=== PATIENT | female | born 2000 | race Caucasian/White ===

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

== ENCOUNTER 2019-11-05 14:42 | Outpatient (REF) | payer MEDICAID, SELFPAY ==
[2019-11-09 12:48] LABS: Chlamydia Result Negative (Negative); GC Result Negative (Negative)
== END 2019-11-05 15:02 ==
LOC: NCHCN 14:42
PROVIDERS: Visit Provider Nurse Practitioner Family
DX: N76.0 Acute vaginitis (principal); Z11.3 Encounter for screening for infections with a predominantly sexual mode of transmission
CPT/HCPCS: 87491; 87591

== ENCOUNTER 2020-07-11 22:27 | Outpatient (REF) | payer MEDICAID, SELFPAY ==
[2020-07-15 10:08] LABS: COVID-19 RT-PCR Result NEGATIVE (Negative)
== END 2020-07-11 22:47 ==
LOC: NCHCN 22:27
PROVIDERS: PCP Nurse Practitioner Family; Visit Provider Nurse Practitioner Family
DX: Z20.828 Contact with and (suspected) exposure to other viral communicable diseases (principal)
CPT/HCPCS: U0003

== ENCOUNTER 2020-08-19 13:40 | Outpatient (REF) | payer MEDICAID, SELFPAY ==
--- NOTE | 2020-08-19 12:15 | PAPFT_PTH ---
PATIENT: Alisia Wilkinson LOC: [facility]#:[id number] AGE/SX: 20/ ROOM: RE08/19/[address]: Aminata Betancourt : 2000 BED: DIS: 08/19/2020 SPEC #: [id number] RECD: 08/19/20 16:48 STATUS: ALEXANDER REQ #: [id number] MINO: 08/19/20 12:[address]: Aminata Betancourt DEPT: [facility] Cytology RECD BY: Milagro Huber Tissues: 1 - CX/ENDOCX FOR PAP SMEARS Procedures: PAP THIN PREP/[facility] Screening Comments: [id number]
== END 2020-08-19 14:00 ==
LOC: NCHCN 13:40
PROVIDERS: PCP Nurse Practitioner Family; Visit Provider Nurse Practitioner Family
DX: Z12.4 Encounter for screening for malignant neoplasm of cervix (principal)
CPT/HCPCS: 88142

== ENCOUNTER 2021-05-14 10:56 | Emergency (ER) | payer MEDICAID, SELFPAY ==
[2021-05-14 11:04] VITALS: BP 116/68; PULSE 99; RESP 18; TEMP 36.5; O2SAT 98
--- NOTE | 2021-05-14 11:31 | W.ED.GENAD ---
Discharge Plan Disposition Patient Disposition: HOME Condition: Stable Discharge Details Clinical Impression: URI (upper respiratory infection), Acute conjunctivitis, left eye Primary Care Provider: Aminata Betancourt ED Provider: Luis Zarate Home Meds and New Rx's Prescriptions: Continued multivitamin Capsule 1 cap PO DAILY RF: 0 Digestive Probiotic 1.5 billion cell capsule 4 mg PO DAILY RF: 0 olive leaf extract 250 mg capsule PO RF: 0 naproxen sodium [Aleve] 220 MG tablet 220 mg PO PRN PRNRF: 0 ibuprofen 200 MG tablet 400 mg PO PRN PRNRF: 0 Discharge Instructions Instructions: Erythromycin (Into the eye), Upper Respiratory Infection (ED), Conjunctivitis (ED) Additional Instructions: Please drink plenty fluids and allow for plenty of rest. Use erythromycin ointment as follows: Apply 0.5 inch to left eye 4 times a day for the next 1 week Please contact your primary care physician to arrange follow-up. Return to the ER immediately for any worsening or new concerning symptoms. Referrals: Aminata Betancourt [Primary Care Provider] - Medical Decision Making 20-year-old female here with cough, congestion, sore throat, left conjunctivitis. Patient saturating well in no respiratory distress with clear lungs bilaterally. No signs of focal bacterial infection on exam. Supportive care recommended with follow-up with her PCP. She was encouraged to return immediately for any worsening or new concerning symptoms. HPI General Mode of arrival: ambulatory. Date/Time Provider Initiated Documentation: 05/14/21 11:11. Limitations to Documentation: no limitations. Information obtained by: patient. HPI Narrative: 20-year-old female here with chief complaint of sore throat. Patient notes sore throat for the past few days. She has had associated inflammation of her left eye with red discoloration as well as cough over the past 5 days. Symptoms are moderate but persistent. She had PCR Covid test done 2 days ago that is negative. No associated fever no shortness of breath. No chest pain. Multiple students at school sick with similar. Related Data Home Medications Medication Instructions Recorded Confirmed ibuprofen 400 mg PO PRN PRN 07/28/16 05/14/21 naproxen sodium [Aleve] 220 mg PO PRN PRN 07/28/16 05/14/21 Bifidobacterium infantis 1.5 4 mg PO DAILY 05/18/19 05/14/21 billion cell capsule multivitamin 1 cap PO DAILY 05/18/19 05/14/21 olive leaf extract 250 mg capsule mg PO 05/18/19 05/18/19 Allergies Allergy/AdvReac Type Severity Reaction Status Date / Time No Known Allergies Allergy Verified 05/14/21 11:09 General Stated Complaint: RespSymp ADRIANA: 4 Review of Systems All systems reviewed & are unremarkable except as noted in HPI and below Constitutional Constitutional: Denies fever(s) Respiratory Respiratory: Reports as per HPI [facility] Medical History Vaginismus Social History Smoking/Tobacco Use Status: Never Smoking risk assessment performed?: Yes Alcohol Intake: current Alcohol Intake frequency: a few times a week Alcohol type: beer Drug use: Never Substance use type: does not use Sexually active: Yes Do you think of yourself as: straight/heterosexual Current gender identity: female Do you feel safe at home: Yes Do you feel safe in your relationship?: Yes Female Reproductive History Menstrual control method: progesterone injection History History 0 Para Hx # Term Pregnancies Multiple births Hx # Pregnancies Ectopic pregnancies AB induced Hx Number of Living Children AB spontaneous Exam Const General: cooperative and no acute distress HENMT Mouth: moist mucous membranes Throat: uvula midline, posterior oropharynx abnormal erythema; no edema and no exudates and other Other: No stridor, no Eyes Conjunctivae: conjunctival abnormality left conjunctival injection; without discharge Sclera: normal sclerae Neck Neck: trachea midline and supple Lymphatic: lymphadenopathy (Mild bilateral anterior) Resp Auscultation: clear to auscultation bilaterally, no rales, no rhonchi and no wheezes Cardio Rate: regular rate and not tachycardic Rhythm: regular rhythm GI Palpation: soft, not firm, no guarding, no masses, not rigid and nontender Skin General skin exam: no rashes or lesions noted Neuro General: patient alert, patient awake, patient oriented x3 and tone normal Extrem General: no edema Course Vital Signs Vital signs: Vital Signs Temperature 36.5 C 05/14/21 11:04 Pulse 99 H 05/14/21 11:04 Respiratory Rate 18 05/14/21 11:04 Blood Pressure 116/68 05/14/21 11:04 Pulse Oximetry 98 05/14/21 11:04 Temperature 36.5 C 05/14/21 11:04 Temperature Source Temporal Artery Scan 05/14/21 11:04 Pulse 99 H 05/14/21 11:04 Respiratory Rate 18 05/14/21 11:04 Respiratory Effort Non-Labored 05/14/21 11:11 Respiratory Depth Normal 05/14/21 11:11 Blood Pressure 116/68 05/14/21 11:04 Blood Pressure Position Sitting 05/14/21 11:04 Pulse Oximetry 98 05/14/21 11:04 Oxygen Delivery Method Room Air 05/14/21 11:04 Oxygen Flow Rate 0 05/14/21 11:04 Pain Level 5 05/14/21 11:04 Lab/Test Results Lab/Test Results: POC- Test(urine) Negative POC Strep Test-AMISHA(Rapid) Start: 05/14/21 11:28 Freq: Status: Active Protocol: Document 05/14/21 11:28 TB (Rec: 05/14/21 11:28 TB [id number]) Strep test-AMISHA(Rapid)-POC POC-Strep test-AMISHA (Rapid) Negative POC-Strep test-AMISHA (Rapid) Negative PAWSS Have you Been Recently Intoxicated or Drunk Within the Last 30 days?: Yes Have you Ever Experienced Previous Episodes of Alcohol Withdrawal?: No Have you ever Experienced Withdrawal Seizures?: No Have you ever Experienced Delirium Tremens(DT)s?: No Have you ever undergone Alcohol Rehabilitation Treatment (i.e, inpt ot outpatient treatment programs)?: No Have you ever Experienced Blackouts?: No Have you ever Combined Alcohol with other Downers within the last 90 days?: No Have you ever Combined Alcohol with any other Substance of Abuse during the last 90 days?: No Positive Blood Alcohol level on Presentation? [PCS.BAL]: No Evidence of Increased Autonomic Activity (i.e. HR>120, tremor, sweating, agitation, nausea)?: No Result: 1
[2021-05-14] MEDS: Erythromycin Ophth Oint 3.5 GM TUBE OS (11:40)
== END 2021-05-14 11:36 | disposition home or self-care (01) ==
LOC: ER 11:46
PROVIDERS: Emergency Provider Student in an Organized Health Care Education/Training Program; PCP Nurse Practitioner Family
DX: J06.9 Acute upper respiratory infection, unspecified (principal); H10.32 Unspecified acute conjunctivitis, left eye
CPT/HCPCS: 81025; 87880; 99283; 87081